=== PATIENT | female | born 1935 | race Caucasian/White ===

== ENCOUNTER 2017-09-15 05:57 | Day surgery (SDC) | payer MEDICARE, OTHER ==
[~2017-09-15] VITALS: Ht 154.9 cm; Wt 64.1 kg
[~2017-09-15 05:57] MED LIST: ALBU8HFA IH; ASPI81 PO; CAPT25TA3 PO; ISON100L PO; LEVO50 PO; LEVO500 PO; METF500T6 PO; MONT10TA21 PO; OMEP20 PO; TRAM50TA4 PO
[2017-09-15] MEDS ORDERED: SODIUM CHLORIDE 0.9% 1,000 ML IV ONE ×2 (06:58→07:00)
[2017-09-15 07:22] LABS: GLUCOMETER DEV NAME(LOC) SDS 5; GLUCOSE,POINT OF CARE 123 MG/DL (70-110)
[2017-09-15] MEDS ORDERED: FentaNYL CITRATE-PF 100 MCG/2 ML VIAL ONE (08:03)
[2017-09-15] MEDS ORDERED: MIDAZOLAM HCL 2 MG/2 ML VIAL ONE (08:03)
[2017-09-15] MEDS ORDERED: MethylPREDNISolone SOD SUCC 125 MG/2 ML VIAL IVP ONE (08:30)
[2017-09-15] MEDS ORDERED: MethylPREDNISolone SOD SUCC 125 MG/2 ML VIAL ONE (08:49)
[2017-09-15] MEDS ORDERED: OXYGEN THERAPY IH SCH (20:00)
== END 2017-09-15 10:25 | disposition home or self-care (01) ==
LOC: SURGERY 05:57
PROVIDERS: ATTEND Internal Medicine Critical Care Medicine
DX: J38.4 Edema of larynx (principal); B37.0 Candidal stomatitis; I10 Essential (primary) hypertension; E11.9 Type 2 diabetes mellitus without complications; H54.8 Legal blindness, as defined in USA; Z79.84 Long term (current) use of oral hypoglycemic drugs; Z79.82 Long term (current) use of aspirin; Z79.2 Long term (current) use of antibiotics; Z79.891 Long term (current) use of opiate analgesic; Z79.899 Other long term (current) drug therapy; Z98.890 Other specified postprocedural states
CPT/HCPCS: 31623; 31624; 71045; 82962; 87015; 87070; 87205; 87220; 88108; 88312; 94640; J2250; J2930; J3010; J7030

== ENCOUNTER → 2022-01-07 | Day surgery (SDC) | payer MEDICARE, MEDICAID ==
[~2022-01-07] VITALS: Ht 165.1 cm; Wt 58.2 kg
[~2022-01-07] MED LIST changes: +ALBUTEROL SULFATE 2.5 MG/0.5 ML NEB SOLUTION NEB ONE; +ASPI-1450 PO; -ASPI81 PO; +BENZOCAINE 20% 50 MCG/SPRAY 57 GM TP ONE; +DOXY-336 PO; +FentaNYL CITRATE PF 100 MCG/2 ML VIAL ONE; +LEVO-72 PO; -LEVO500 PO; +LIDOCAINE 2% 11 ML JELLY TP ONE; +LIDOCAINE 4% 50 ML SOLUTION TP ONE; +METF-1211 PO; -METF500T6 PO; +MIDAZOLAM HCL 5 MG/ML VIAL ONE; +MONT-35 PO; -MONT10TA21 PO; +MethylPREDNISolone SOD SUCC 125 MG/2 ML VIAL IVP ONE; +OXYGEN THERAPY IH SCH; +QUET25TA36 PO; +SODIUM CHLORIDE 0.9% 1,000 ML IV ONE; +SODIUM CHLORIDE 0.9% 1,000 ML ONE
[2022-01-07 06:53] LABS: COVID AG,FIA SOURCE NASAL SWAB
[2022-01-07 07:41] LABS: GLUCOMETER DEV NAME(LOC) SDS.; GLUCOSE,POINT OF CARE 97 MG/DL (70-110)
== END | disposition still patient (30) ==
LOC: SURGERY 05:34
PROVIDERS: ATTEND Internal Medicine Critical Care Medicine
DX: J38.4 Edema of larynx (principal); B37.0 Candidal stomatitis; F03.90 Unspecified dementia, unspecified severity, without behavioral disturbance, psychotic disturbance, mood disturbance, and anxiety; Z79.899 Other long term (current) drug therapy; Z98.890 Other specified postprocedural states; Z79.82 Long term (current) use of aspirin
CPT/HCPCS: 31623; 88112; 82962; 87206; 87101; 87220; 87070; 88305; 88312; 31624; 71045; 87015; 87426; J3010; J2930; J2250; Q9967; J7030; C9803; J7613; Z7610